=== PATIENT | female | born 1940 | race Caucasian/White ===

== ENCOUNTER 2021-03-16 08:00 | Outpatient (CLI) | payer OTHER ==
[~2021-03-16 08:00] MED LIST: ADVAIR 100-501 EACH; AVAPRO PO; CALTRATE 600600 MG PO; CIPRO500 MG PO; CLONAZEPAM0.5 MG PO; COD LIVER OIL1 EACH PO; GAVISCON EXTRA355 ML PO; LEVALBUTER0.31 MG/3; LEVAQUIN500 MG PO; METROPOLOL PO; PLAVIX75 MG PO; PROVENTIL3 ML/2.5 M; RECTICARE30 GM TP; TESSALON PERLE100 MG PO; ULTRACET PO; ZANTAC150 MG PO; ZITHROMAX TRI-500 MG PO; ZOCOR40 MG PO; [UNRECOGNIZED DRUG - OTHER] PO; [UNRECOGNIZED DRUG - OTHER] PO
== END 2021-03-16 08:30 | disposition home or self-care (01) ==
LOC: PPH VACUNA 08:00
DX: Z23 Encounter for immunization (principal)

== ENCOUNTER 2021-04-05 08:00 | Outpatient (CLI) | payer OTHER | END 2021-04-05 08:30 | disposition home or self-care (01) | LOC: PPH VACUNA 08:00 | DX: Z23 Encounter for immunization (principal) ==

== ENCOUNTER 2021-04-20 06:45 | Day surgery (SDC) | payer OTHER | END 2021-04-20 11:15 | disposition home or self-care (01) | LOC: AMB-ENDOS 06:45 | PROVIDERS: ATTEND Surgery | DX: K62.89 Other specified diseases of anus and rectum (principal); K64.8 Other hemorrhoids; Z20.822 Contact with and (suspected) exposure to COVID-19 ==

== ENCOUNTER 2021-06-04 11:14 | Emergency (ER) | payer OTHER ==
[~2021-06-04] VITALS: Ht 152.4 cm; Wt 89.4 kg
[2021-06-04] MEDS ORDERED: CARDURA XL4 MG PO (11:34)
[2021-06-04] MEDS ORDERED: DIOVAN160 M1 PO (11:34)
[2021-06-04] MEDS ORDERED: ZOCOR20 MG PO (11:34)
[2021-06-04] MEDS ORDERED: KAPSPARGO SPRIN25 MG PO (11:35)
== END 2021-06-04 14:33 | disposition home or self-care (01) ==
LOC: ER 11:14
DX: J45.909 Unspecified asthma, uncomplicated (principal); Z20.822 Contact with and (suspected) exposure to COVID-19

== ENCOUNTER 2023-10-20 23:04 | Emergency (ER) | payer OTHER ==
[~2023-10-20] VITALS: Ht 160 cm; Wt 58.1 kg
[~2023-10-20 23:04] MED LIST changes: +CARDURA XL4 MG PO; +DIOVAN160 M1 PO; +KAPSPARGO SPRIN25 MG PO; +ZOCOR20 MG PO
[2023-10-21] MEDS ORDERED: METHYLPREDNISOLONE SOD SUCC 125 MG VIAL IV STA (03:29)
[2023-10-21] MEDS ORDERED: GUAIFENESIN/DEXTROMETHORPHAN 100 MG/5 ML ML PO STA (03:30)
[2023-10-21] MEDS ORDERED: IPRATROPIUM BROMIDE 0.5 MG/2.5 ML AMPUL.NEB IH SCH (03:30)
[2023-10-21] MEDS ORDERED: ALBUTEROL SULFATE 3 ML/2.5 MG AMPUL.NEB IH SCH (03:30)
[2023-10-21 04:24] LABS: HEMATOCRIT 33.8 % (36.0-45.00); HEMOGLOBIN 11.3 g/dL (12.0-15.00); MEAN CELL VOLUME 83.7 fL (80.00-100.00); MEAN CORPUSCULAR HGB CONC 33.4 g/dl (32.0-36.0); PLATELET COUNT 199 K/uL (150-450); RED BLOOD COUNT 4.04 M/uL (4.00-6.00); RED CELL DISTRIBUTION WIDTH 14.3 % (11.5-14.5)
== END 2023-10-21 05:33 | disposition home or self-care (01) ==
LOC: ER 23:04
DX: J06.9 Acute upper respiratory infection, unspecified (principal); Z20.822 Contact with and (suspected) exposure to COVID-19